=== PATIENT | male | born 1990 | race Caucasian/White ===

== ENCOUNTER 2021-11-22 18:57 | Emergency (ER) | payer MEDICAID ==
[~2021-11-22] VITALS: Ht 167.6 cm; Wt 72.7 kg
--- NOTE | 2021-11-22 23:13 | NUR ---
ASSUMED CARE OF PT. PT ROOMED IN BED 6
[2021-11-22 23:30] VITALS: BP 123/85
[2021-11-23] MEDS: TETanus/Pertussis (Acell)/Diphther VAC/PF (Tdap-Adult) 0.5ml syringe IMVAC ONE (00:19)
[2021-11-23] MEDS ORDERED: AMOX-117 PO (02:36)
[2021-11-23] MEDS: amox tr/potassium clavulanate 875/125mg TAB PO ONE (03:16)
== END 2021-11-23 03:17 | disposition home or self-care (01) ==
LOC: ER 18:58
DX: S01.81XA Laceration without foreign body of other part of head, initial encounter (principal); M79.641 Pain in right hand; Z20.3 Contact with and (suspected) exposure to rabies; W54.0XXA Bitten by dog, initial encounter; Y93.89 Activity, other specified; Y92.89 Other specified places as the place of occurrence of the external cause; Y99.8 Other external cause status
CPT/HCPCS: 12011; 12051; 73130; 90471; 90715; 99283; 99284